=== PATIENT | male | born 1980 | race Hispanic/Latino ===

== ENCOUNTER → 2021-04-07 | Outpatient (CLI) | payer OTHER ==
[~2021-04-07] MED LIST: GADOTERATE MEGLUMINE 10 MMOL/20 ML VIAL IV ONE
== END | disposition home or self-care (01) ==
LOC: RAH 08:08
PROVIDERS: ATTEND Internal Medicine
DX: E22.1 Hyperprolactinemia (principal); E29.1 Testicular hypofunction
CPT/HCPCS: 70553; A9575

== ENCOUNTER 2022-02-28 15:57 | Emergency (ER) | payer OTHER ==
[~2022-02-28] VITALS: Ht 175.3 cm; Wt 88.5 kg
[2022-02-28] MEDS ORDERED: 0.9%NACL 1000ML 1,000 ML IV SCH (16:30)
[2022-02-28] MEDS ORDERED: IBUPROFEN 800 MG TAB PO ONE (16:30)
[2022-02-28] MEDS ORDERED: ACETAMINOPHEN 500 MG TABLET PO ONE (16:30)
[2022-02-28] MEDS ORDERED: ACET-2247 PO (17:17)
[2022-02-28] MEDS ORDERED: IBUP-2071 PO (17:17)
[2022-02-28] MEDS ORDERED: NIRM1TAB PO (17:17)
[2022-02-28 17:38] VITALS: BP 132/91
== END 2022-02-28 18:06 | disposition home or self-care (01) ==
LOC: EDH 15:57
DX: U07.1 COVID-19 (principal); B34.9 Viral infection, unspecified; E86.0 Dehydration; R50.9 Fever, unspecified
CPT/HCPCS: 87635; 87804 ×2; 96360; 99283; C9803; J7030